=== PATIENT | female | born 1995 | race Hispanic/Latino ===

== ENCOUNTER 2019-12-04 11:54 | Emergency (ER) | payer SELFPAY ==
--- NOTE | ~2019-12-04 | XR_ITS ---
EXAMINATION: XR chest 2V DATE: 12/04/2019 13:28 INDICATION: 2 months of anterior chest pain TECHNIQUE: PA and lateral views of the chest were obtained. COMPARISON: None FINDINGS: The lungs are clear with no focal airspace opacities, pulmonary edema, pleural effusion or pneumothor ax. The cardiomediastinal silhouette is normal. Visualized bones and soft tissues are unremarkable. IMPRESSION: 1. Normal chest radiograph. Reviewed, dictated and finalized at location [facility]. IMPRESSION: 1. Normal chest radiograph.
--- NOTE | ~2019-12-04 | CT_ITS ---
EXAMINATION: CT abdomen pelvis w con DATE: 12/04/2019 14:55 INDICATION: Right lower quadrant abdominal pain TECHNIQUE: Computed tomography (CT) of the abdomen and pelvis was performed with 100 cc Omnipaque 350 intravenous contrast. Automated exposure control and iterative reconstruction technique were employe d. Exam dose: 1588.42 mGy-cm total exam DLP. COMPARISON: None. FINDINGS: The lung bases are clear. Normal heart size. No pericardial or pleural effusion. There is diffuse prominent hepatic steatosis. No hepatic, splenic, pancreatic, adrenal or renal space -occupying mass lesion is evident. The gallbladder appears unremarkable. No bile duct or pancreatic d uct dilatation. No urinary tract calculus or hydroureteronephrosis. Retroflexed uterus. The uterus and adnexal areas are otherwise unremarkable. The urinary bladder appears normal. Normal appendix. No bowel obstruction, bowel wall thickening, pneumatosis or intraperitoneal free air is detected. Normal caliber of the abdominal aorta. No intraperitoneal or retroperitoneal or pelvic mass lesion or adenopathy or ascites. Included skeletal structures are unremarkable. IMPRESSION: Normal appendix Retroflexed uterus Hepatic steatosis Reviewed, dictated and finalized at [facility]. Reviewed, dictated and finalized at location A.
[2019-12-04 12:00] VITALS: BP 146/91; PULSE 106; RESP 18; TEMP 36.6; O2SAT 100
--- NOTE | 2019-12-04 12:05 | ECG_ITS ---
Measurements Intervals [place] Rate: 91 P: 38 NC: 144 QRS: -14 QRSD: 96 T: 4 QT: 330 QTc: 406 Interpretive Statements SINUS RHYTHM BORDERLINE R WAVE PROGRESSION, ANTERIOR LEADS INFERIOR INFARCT, AGE INDETERMINATE ABNORMAL ECG Electronically Signed On 12-04-2019 13:21:54 CDT by Spencer Love D.O.
[2019-12-04 12:21] LABS: Basophils Percent Auto 0.5 % (0.2-1.2); Eosinophils Absolute Auto 0.2 K/mm3 (0-0.3); Eosinophils Percent Auto 2.4 % (0-4.4); Hematocrit 40.4 % (37.0-47.0); Hemoglobin 12.7 g/dL (12.0-15.0); Immature Granulocyte Absolute 0.01 K/mm3 (0.00-0.031); Immature Granulocyte Percent A 0.2 % (0-0.5); Lymphocytes Absolute Auto 1.86 K/mm3 (0.9-3.2); Lymphocytes Percent Auto 29.4 % (18.3-44.2); Mean Corpuscular HGB Conc 31.4 g/dl (32-36); Mean Corpuscular Hemoglobin 23.2 pg (26-34); Mean Corpuscular Volume 73.9 fl (80-100); Mean Platelet Volume 10.1 fl (7.4-10.4); Monocytes Absolute Auto 0.5 K/mm3 (0.1-0.6); Monocytes Percent Auto 7.9 % (2.6-8.5); Neutrophils Absolute Auto 3.8 K/mm3 (1.3-6.7); Neutrophils Percent Auto 59.6 % (45.5-73.1); Platelet Count Result 404 k/mm3 (150-375); Red Blood Count 5.47 M/mm3 (4.2-5.4); Red Cell Distribution Width 18.3 % (11.5-14.5); White Blood Count 6.3 K/mm3 (4.5-10.0)
[2019-12-04 12:34] LABS: Glucose Point of Care 269 (65-105)
--- NOTE | 2019-12-04 12:34 | PC.NURSE ---
Blood glucose was 269 at 12:35
[2019-12-04 12:38] LABS: Alanine Aminotransferase 68 U/L (4-35); Albumin Level 4.9 g/dL (3.5-5.1); Alkaline Phosphatase 163 U/L (38-126); Aspartate Amino Transferase 69 U/L (14-36); Bilirubin,Total 0.5 mg/dL (0.2-1.3); Blood Urea Nitrogen 8 mg/dL (7-17); Calcium 9.3 mg/dL (8.4-10.2); Carbon Dioxide 24 mmol/L (22-30); Chloride 98 mmol/L (98-107); Estimated CRCL calculation 167 ml/min; Estimated Glomerular Filt Rate > 60; Glucose 297 mg/dL (65-105); Lipase 96 U/L (23-300); Sodium 133 mmol/L (137-145)
[2019-12-04 12:41] VITALS: BP 141/88; PULSE 90
[2019-12-04 12:41] LABS: Potassium 4.3 mmol/L (3.4-5.0)
[2019-12-04 12:43] VITALS: BP 147/99; PULSE 99
[2019-12-04 12:45] VITALS: BP 133/69; PULSE 110
[2019-12-04 12:46] LABS: Add Urine Microscopic? YES; Appearance Urine Clear (Clear); Bilirubin Urine Negative (Negative); Blood Urine Negative (Negative); Color Urine Yellow (Yellow); Glucose Urine UA 3+ mg/dL (Negative); Ketones Urine 1+ mg/dL (Negative); Leukocyte Esterase Ur Negative LEU/UL (Negative); Nitrate Urine Negative (Negative); Protein Urine 1+ mg/dL (Negative); Urobilinogen Urine Negative mg/dL (<2.0)
[2019-12-04 12:48] LABS: Bacteria Urine Trace /hpf; Specific Grav Ur 1.035 (1.001-1.035); Squamous Epithelial Cell Urine Few /hpf (Few); WBC Urine 0-3 /hpf
[2019-12-04 13:39] LABS: Magnesium 1.6 mg/dL (1.6-2.3); Phosphorus 2.9 mg/dL (2.5-4.5)
[2019-12-04 13:40] LABS: Alveolar/Arterial O2 Gradient 15.7 mmHg; Base Excess ABG -0.7 mEq/l (+/-2.0); Carboxyhemoglobin 0.7 % THb (0-2.0); Fractional Inspired Oxygen 21 %; HCO3 ABG 23.3 mEq/l (22.0-26.0); Methemoglobin ABG 0.3 %THb (0-1.5); Oxygen Content ABG 16.8 %vol (16.0-22.0); Oxygen Saturation ABG 97.1 % (95.0-100.0); Oxyhemoglobin 95.7 % THb (90.0-100.0); PCO2 ABG 36.3 mmHg (35.0-45.0); PO2 ABG 90.6 mmHg (80.0-100.0); PO2 FiO2 Ratio Arterial Blood 4.31 %; Reduced Hemoglobin 3.3 %THb (0-5.0); Total Hemoglobin 12.4 g/dL (12.0-18.0); pH ABG 7.426 (7.350-7.450)
[2019-12-04 13:41] LABS: Device ROOM AIR; Modified Allen's Test Pass; Site Drawn LEFT RADIAL
[2019-12-04 13:43] LABS: Prothrombin Time 12.9 Seconds (11.1-14.7)
[2019-12-04 13:44] LABS: Partial Thromboplastin Time 27.5 SECONDS (22.3-36.8)
[2019-12-04 13:45] LABS: Beta-Hydroxybutyrate/Acetoacetate 0.25 mmol/L (0.02-0.27)
[2019-12-04] MEDS: SODIUM CHLORIDE 0.9% IV 1,000 ML 999 ML IV CONT (13:50)
[2019-12-04 13:52] LABS: NT Pro B Type Natriuretic Pept 39 PG/ML (5-100); Troponin I < 0.012 ng/mL (0.000-0.034)
[2019-12-04 13:55] LABS: D Dimer 0.27 ug/mL (<0.48)
--- NOTE | 2019-12-04 14:19 | ED.RECABL ---
HPI - Recheck/Abnormal Lab/Rx General Chief Complaint: Recheck/Abnormal Lab/Rx Stated Complaint: high blood sugar Time Seen by Provider: 12/04/19 13:06 Source: patient Mode of arrival: ambulatory Limitations: no limitations History of Present Illness HPI narrative: This is a 24 year old female that presents to the ER for high blood sugar. Reports she was recently diagnosed with diabetes. Reports she does not check her blood sugar often. She checked it today and it was in the 300s. Reports over the last couple of months she has had chest pain, shortness of breath, abdominal discomfort, and nausea. Denies fever or cough. Related Data Home Medications Medication Instructions Recorded Confirmed levothyroxine 75 mcg PO DAILY 12/04/19 metformin 1,000 mg PO BID 12/04/19 Allergies Allergy/AdvReac Type Severity Reaction Status Date / Time No Known Allergies Allergy Verified 12/04/19 12:04 Review of Systems Review of Systems: Narrative: CONSTITUTIONAL: Denies fever CARDIOVASCULAR: Reports chest pain. Denies edema. RESPIRATORY: Reports dyspnea. Denies cough GASTROINTESTINAL: Reports abdominal pain, nausea. Denies vomiting, or diarrhea. GENITOURINARY: Denies dysuria or hematuria. All systems reviewed & are unremarkable except as noted in HPI and below PMFSH Past Medical History Medical History (Updated 12/04/19 @ 15:55 by Nancy Triplett PA-C) History of diabetes mellitus History of hypothyroidism Social History Social History Gender identity (if verbalized by the patient): Female Exam Narrative: Exam Narrative: GENERAL: Well-appearing, obese, and in no acute distress. HEAD: Normocephalic, atraumatic. EYES: PERRLA and EOMI. ENT: Nares clear, no rhinorrhea or epistaxis. Mucous membranes moist. Oropharynx without tonsillar hypertrophy exudate or other lesions. Bilateral TMs pearly estrada non-bulging NECK: Supple. No adenopathy or masses. CHEST: Clear to auscultation. No respiratory distress. No wheezes rales or rhonchi HEART: Regular rate and rhythm. No murmur heard. Normal peripheral pulses. ABDOMEN: Soft, nondistended, normal active bowel sounds. Mild tenderness to palpation of the right lower quadrant, without guarding EXTREMITIES: Normal range of motion. No edema. SKIN: Warm, dry, no rash. NEURO: No focal deficits. Alert and oriented x3. PSYCH: Normal mood and affect Course Vital Signs Vital signs: Vital Signs Temperature 97.9 F 12/04/19 12:00 Pulse Rate 106 H 12/04/19 12:00 Respiratory Rate 18 12/04/19 12:00 Blood Pressure 146/91 H 12/04/19 12:00 Pulse Oximetry 100 12/04/19 12:00 Temperature 97.9 F 12/04/19 12:00 Pulse Rate 110 H 12/04/19 12:45 Respiratory Rate 18 12/04/19 12:00 Blood Pressure 133/69 12/04/19 12:45 Pulse Oximetry 100 12/04/19 12:00 MDM - Recheck/Abnormal Lab/Rx MDM Narrative Medical decision making narrative: Patient presents the emergency department for multiple complaints which have been ongoing. Reported shortness of breath,, chest pain, abdominal discomfort, and nausea. Patient is afebrile and nontoxic-appearing. Vitals are stable. CBC is without leukocytosis. Metabolic panel with blood glucose of 297. Liver enzymes are also mildly elevated. Patient has known history of hepatic steatosis. BNP is not elevated. D-dimer is not elevated. Troponin is negative. TSH mildly elevated to 4.73, T4 is normal. UA with glucose and 1+ ketones, no signs of infection. Bedside test is negative. Chest x-ray without acute findings. CT scan of the abdomen and pelvis without acute findings. Patient's hemoglobin A1c is 10.9. She was recently diagnosed with diabetes and is on metformin. Spoke with patient's primary, she is to follow-up in clinic. Patient stable and felt appropriate for the outpatient evaluation. She was given warnings to return to the ER Lab Data Attestation: I reviewed the patient's lab results. Result diagrams:
[2019-12-04 14:30] VITALS: BP 140/80; PULSE 110; RESP 16; O2SAT 98
[2019-12-04 14:37] LABS: Hemoglobin A1C 10.9 % (<5.7)
[2019-12-04 14:51] LABS: Free T4 Free Thyroxine Reflex 1.37 ng/dL (0.78-2.19)
[2019-12-04 15:31] LABS: Total Triiodothyronine (T3) 1.58 NG/ML (0.97-1.69)
[2019-12-04 16:20] VITALS: BP 136/89; PULSE 100; RESP 16; O2SAT 100
== END 2019-12-04 16:20 | disposition home or self-care (01) ==
PROVIDERS: Physician Assistant; Emergency Provider Emergency Medicine; PCP Physician Assistant
DX: E11.9 Type 2 diabetes mellitus without complications (principal); E03.9 Hypothyroidism, unspecified; Z79.84 Long term (current) use of oral hypoglycemic drugs; K76.0 Fatty (change of) liver, not elsewhere classified; R94.31 Abnormal electrocardiogram [ECG] [EKG]
CPT/HCPCS: 36415; 36600; 71046; 74177; 80053; 81001; 81025; 82010; 82375; 82805; 82948; 83036; 83050; 83690; 83735; 83880; 84100; 84439; 84443; 84480; 84484; 85025; 85380; 85610; 85730; 93005; 96360; 99284; J7030; Q9967

== ENCOUNTER 2020-11-19 13:33 | Emergency (ER) | payer OTHER, SELFPAY ==
--- NOTE | ~2020-11-19 | XR_ITS ---
EXAMINATION: XR chest 2V DATE: 11/19/2020 14:20 INDICATION: Left-sided chest pressure TECHNIQUE: PA and lateral views of the chest are obtained. COMPARISON: 12/04/2019 FINDINGS: The lungs are free of acute opacities. There is no pleural effusion or pneumothorax. The ca rdiomediastinal silhouette is normal. The visualized bones and soft tissues are unremarkable. IMPRESSION: 1. No acute cardiopulmonary abnormality. Reviewed, dictated and finalized at location A.
--- NOTE | 2020-11-19 13:50 | ECG_ITS ---
Measurements Intervals [place] Rate: 103 P: 52 MT: 144 QRS: -10 QRSD: 94 T: 17 QT: 342 QTc: 449 Interpretive Statements SINUS TACHYCARDIA LOW QRS VOLTAGE IN PRECORDIAL LEADS INCOMPLETE RIGHT BUNDLE BRANCH BLOCK DELAYED PRECORDIAL R/S TRANSITION INFERIOR INFARCT, AGE INDETERMINATE BASELINE ARTIFACT- III, AVF ABNORMAL ECG Electronically Signed On 11-19-2020 19:25:57 CDT by Spencer Love D.O.
[2020-11-19 14:01] VITALS: BP 137/72; PULSE 99; RESP 16; TEMP 36.2; O2SAT 100
[2020-11-19 14:20] LABS: Basophils Percent Auto 0.2 % (0.2-1.2); Eosinophils Absolute Auto 0.2 K/mm3 (0-0.3); Eosinophils Percent Auto 2.2 % (0-4.4); Hematocrit 35.5 % (37.0-47.0); Hemoglobin 10.7 g/dL (12.0-15.0); Immature Granulocyte Absolute 0.03 K/mm3 (0.00-0.031); Immature Granulocyte Percent A 0.4 % (0-0.5); Lymphocytes Absolute Auto 2.05 K/mm3 (0.9-3.2); Lymphocytes Percent Auto 23.9 % (18.3-44.2); Mean Corpuscular HGB Conc 30.1 g/dl (32-36); Mean Corpuscular Hemoglobin 21.4 pg (26-34); Mean Corpuscular Volume 70.9 fl (80-100); Mean Platelet Volume 9.9 fl (7.4-10.4); Monocytes Absolute Auto 0.5 K/mm3 (0.1-0.6); Monocytes Percent Auto 6.2 % (2.6-8.5); Neutrophils Absolute Auto 5.7 K/mm3 (1.3-6.7); Neutrophils Percent Auto 67.1 % (45.5-73.1); Platelet Count Result 425 k/mm3 (150-375); Red Blood Count 5.01 M/mm3 (4.2-5.4); Red Cell Distribution Width 16.6 % (11.5-14.5); White Blood Count 8.6 K/mm3 (4.5-10.0)
[2020-11-19 14:30] LABS: Partial Thromboplastin Time 26.6 SECONDS (22.3-36.8); Prothrombin Time 13.7 Seconds (11.1-14.7)
[2020-11-19 14:32] LABS: Anion Gap 12 mmol/L (8-16); Blood Urea Nitrogen 14 mg/dL (7-17); Calcium 8.9 mg/dL (8.4-10.2); Carbon Dioxide 23 mmol/L (22-30); Chloride 102 mmol/L (98-107); Estimated CRCL calculation 163 ml/min; Estimated Glomerular Filt Rate > 60; Glucose 330 mg/dL (65-105); Potassium 4.1 mmol/L (3.4-5.0); Sodium 137 mmol/L (137-145)
[2020-11-19 14:44] LABS: Troponin I < 0.012 ng/mL (0.000-0.034)
--- NOTE | 2020-11-19 16:24 | ED.GENADULT ---
HPI - General Adult General Chief complaint: Chest Pain Stated complaint: chest pain Time Seen by Provider: 11/19/20 16:11 Source: patient History of Present Illness HPI narrative: Patient is a 25 y/o female complaining of left sided chest pain starting 2 days ago. She describes her pain as burning and pressure. She rates her pain as 3/10. Her pain radiates to her left arm. There is no known alleviating or exacerbating factor. She has no cough or chest pain. Related Data Home Medications Medication Instructions Recorded Confirmed metformin 1,000 mg PO BID 12/04/19 Allergies Allergy/AdvReac Type Severity Reaction Status Date / Time No Known Allergies Allergy Verified 11/19/20 14:00 Review of Systems Constitutional: Constitutional: Denies chills, Denies fever(s), Denies headache(s) and Denies weakness Eyes: Eyes: Denies blurry vision ENT: Denies headache(s) and Denies neck pain Cardiovascular: Cardiovascular: Reports chest pain and Denies dyspnea Respiratory: Respiratory: Denies cough and Denies dyspnea Gastrointestinal: Gastrointestinal: Denies abdominal pain, Denies diarrhea, Denies nausea and Denies vomiting Genitourinary: Genitourinary: Denies hematuria and Denies dysuria Musculoskeletal: Musculoskeletal: Denies back pain and Denies neck pain Neurologic: Denies headache(s) and Denies weakness PMFSH Past Medical History Medical History History of diabetes mellitus History of hypothyroidism Social History Social History Gender identity (if verbalized by the patient): Female Exam Const: General: no acute distress and well developed Orientation/consciousness: oriented to person, oriented to place, oriented to time and patient oriented x3 HENMT: Head: normocephalic Ears: external ears normal General nose exam: Normal external nose present Eyes: General: appearance normal, both eyes and all related structures Conjunctivae: conjunctivae normal Neck: Neck: normal visual inspection and full ROM Chest: Chest palpation & inspection: normal inspection of the chest and no tenderness Resp: Effort & Inspection: normal respiratory effort Auscultation: clear to auscultation bilaterally Cardio: Rate: regular rate Rhythm: regular rhythm GI: GI Palp: No abdominal tenderness and Yes Soft to palpation Skin: General skin exam: normal color and turgor normal Neuro: General: oriented to person, oriented to place, oriented to time and patient oriented x3 Cognition (Neuro): normal cognition Extrem: General: normal to inspection, full ROM and no pedal edema Psych: Appearance: grossly normal Mental Status: mental status grossly normal Affect: normal affect Course Vital Signs Vital signs: Vital Signs Temperature 36.2 C L 11/19/20 14:01 Pulse Rate 99 11/19/20 14:01 Respiratory Rate 16 11/19/20 14:01 Blood Pressure 137/72 11/19/20 14:01 Pulse Oximetry 100 11/19/20 14:01 Temperature 36.4 C 11/19/20 16:27 Pulse Rate 95 11/19/20 18:04 Respiratory Rate 16 11/19/20 18:04 Blood Pressure 126/76 11/19/20 18:04 Pulse Oximetry 97 11/19/20 18:04 Medical Decision Making Vital Signs Vital Signs: Vital Signs Temperature 36.2 C L 11/19/20 14:01 Pulse Rate 99 11/19/20 14:01 Respiratory Rate 16 11/19/20 14:01 Blood Pressure 137/72 11/19/20 14:01 Pulse Oximetry 100 11/19/20 14:01 Temperature 36.4 C 11/19/20 16:27 Pulse Rate 95 11/19/20 18:04 Respiratory Rate 16 11/19/20 18:04 Blood Pressure 126/76 11/19/20 18:04 Pulse Oximetry 97 11/19/20 18:04 Lab Data Result diagrams: 11/19/20 14:04 11/19/20 14:04 Labs: Lab Results 11/19/20 11/19/20 11/19/20 Range/Units 14:04 14:04 14:04 WBC 8.6 (4.5-10.0) K/mm3 RBC 5.01 (4.2-5.4) M/mm3 Hgb 10.7 L (12.0-15.0) g/dL Hct 35.5 L (37.0-47
[2020-11-19 16:27] VITALS: BP 120/77; PULSE 85; RESP 23; TEMP 36.4; O2SAT 100
--- NOTE | 2020-11-19 17:03 | PC.NURSE ---
called hematology added on a D dimer talked to [place] 170
[2020-11-19 17:20] LABS: D Dimer 0.27 ug/mL (<0.48)
[2020-11-19 17:36] LABS: Troponin I < 0.012 ng/mL (0.000-0.034)
[2020-11-19 18:01] VITALS: PULSE 96
[2020-11-19 18:04] VITALS: BP 126/76; PULSE 95; RESP 16; O2SAT 97
== END 2020-11-19 18:12 | disposition home or self-care (01) ==
PROVIDERS: Emergency Provider Emergency Medicine; PCP Physician Assistant
DX: R07.89 Other chest pain (principal); E11.65 Type 2 diabetes mellitus with hyperglycemia; E03.9 Hypothyroidism, unspecified; Z79.84 Long term (current) use of oral hypoglycemic drugs; R00.0 Tachycardia, unspecified; I45.10 Unspecified right bundle-branch block; R94.31 Abnormal electrocardiogram [ECG] [EKG]
CPT/HCPCS: 36415; 71046; 80048; 84484; 85025; 85380; 85610; 85730; 93005; 99284; A9270